=== PATIENT | female | born 1980 | race Caucasian/White ===

== ENCOUNTER 2017-08-16 20:53 | Emergency (ER) | payer OTHER ==
[~2017-08-16] VITALS: Ht 167.6 cm; Wt 93.0 kg
[2017-08-16 21:01] VITALS: BP 141/97
== END 2017-08-16 22:39 | disposition home or self-care (01) ==
LOC: ER 21:01
DX: J20.9 Acute bronchitis, unspecified (principal); Z86.718 Personal history of other venous thrombosis and embolism; Z98.890 Other specified postprocedural states
CPT/HCPCS: 71045-TC; A4606; Z7610